=== PATIENT | male | born 1940 | race Caucasian/White ===

== ENCOUNTER 2016-10-03 11:43 | Observation (INO) | payer OTHER, BC ==
--- NOTE | 2016-10-03 12:02 | CPEKG ---
Heart Rate: 57 RR Interval: 1053 P-R Interval: 156 QRSD Interval: 110 QT Interval: 432 QTC Interval: 421 P [place]: -6 QRS [place]: -24 T Wave [place]: 38 EKG Severity - ABNORMAL ECG - EKG Impression: SINUS RHYTHM EKG Impression: NONSPECIFIC INTRAVENTRICULAR CONDUCTION DELAY Electronically Signed By: Beto Molina 03-Oct-2016 15:46:42
[2016-10-03 12:26] LABS: % IMMATURE GRANULYOCYTES 0.6 % (0.0-1.1); ABSOLUTE IMMATURE GRANULOCYTES 0.05 10^3/uL (0.00-0.10); ADD DIFF? NO; ADD MORPH? NO; ADD SCAN? NO; ATYPICAL LYMPHOCYTE FLAG 0 (0-99); FRAGMENT RBC FLAG 0 (0-99); HEMATOCRIT 52.1 % (40.0-51.0); HEMOGLOBIN 18.3 g/dL (13.7-17.5); LEFT SHIFT FLG 0 (0-99); LIPEMIA HEMOLYSIS FLAG 90 (0-99); MEAN CELL HEMOGLOBIN 32.6 pg (27.9-34.1); MEAN CELL HEMOGLOBIN CONCENTR. 35.1 g/dL (32.4-36.7); MEAN CELL VOLUME 92.7 fL (81.5-99.8); MEAN PLATELET VOLUME 10.2 fL (8.7-11.7); PLATELET CLUMPS FLAG 0 (0-99); PLATELET COUNT 151 10^3/uL (150-400); RED BLOOD CELL COUNT 5.62 10^6/uL (4.40-6.38); RED CELL DISTRIBUTION WIDTH 13.9 % (11.5-15.2)
[2016-10-03 12:33] LABS: ANION GAP 16 mEq/L (8-16); CALCIUM 9.4 mg/dL (8.5-10.4); CARBON DIOXIDE 20 mEq/l (22-31); CHLORIDE 104 mEq/L (97-110); CREATININE 1.7 mg/dL (0.7-1.3); GLOMERULAR FILTRATION RATE 40; GLUCOSE 176 mg/dL (70-100); POTASSIUM 4.5 mEq/L (3.5-5.2); SODIUM 140 mEq/L (134-144)
[2016-10-03 12:36] LABS: APTT 22.8 SEC (23.0-38.0); INR 0.98 (0.83-1.16); PROTIME(PATIENT) 12.9 SEC (12.0-15.0)
[2016-10-03 12:46] LABS: TROPONIN I < 0.012 ng/mL (0-0.034)
--- NOTE | 2016-10-03 13:07 | EDPHY ---
H & P Stated Complaint: SYNCOPE Source: Patient, Family, EMS Exam Limitations: No limitations - Personal History Current Tetanus/Diphtheria Vaccine: Yes Tetanus Vaccine Date: WITHIN 10 YRS - Medical/Surgical History Hx Asthma: No Hx Chronic Respiratory Disease: No Hx Diabetes: No Hx Cardiac Disease: Yes Hx Renal Disease: No Hx Cirrhosis: No Hx Alcoholism: No Hx HIV/AIDS: No Hx Splenectomy or Spleen Trauma: No Other PMH: hypertension, blind, bph, gerd, depression, back surg/neck surg, carpal tunnel bilat hands - Social History Smoking Status: Former smoker HPI/ROS: CHIEF COMPLAINT: Syncope, fall HISTORY OF PRESENT ILLNESS: Patient arrives by EMS status post fall. He was standing in his bathroom after being outside when he lost conscious. He does not know exactly what happened. His is in the other room and heard him fall. She found him lying with his head against the bathtub. He complains of mild headache but no neck pain. No chest pain. Some thoracic back pain. No pain in the arms, legs, abdomen or pelvis. The pain is minimal. He arrives by EMS and is seen at time of arrival. Spouse reports that this has happened once in the past. He has also had multiple near syncopal episodes that were resolved by laying flat. No other associated complaints or modifying factors. REVIEW OF SYSTEMS: Ten systems reviewed and are negative unless otherwise noted in the HPI PAST MEDICAL HISTORY: Reviewed SOCIAL HISTORY: Nonsmoker FAMILY HISTORY: Noncontributory EXAMINATION General Appearance: Alert, no distress Head: normocephalic, atraumatic Eyes: Acquired blindness. No obvious trauma to the eyes. ENT, Mouth: Mucous membranes moist Neck: C-collar in place. Trachea midline. Respiratory: Lungs are clear to auscultation Cardiovascular: Regular rate and rhythm. No murmur pulses intact distally. Gastrointestinal: Abdomen is soft and nontender. No distention. No tympany. No rigidity. Back: non-tender, no bony abnormalities Neurological: GCS 15. No pronator drift or dysmetria. A&O, nonfocal, normal gait Skin: Warm and dry, no rash. No lacerations abrasions or contusions Extremities: Nontender, no pedal edema. Range of motion is symmetric in all 4 limbs. Psychiatric: Mood and affect normal DIFFERENTIAL DIAGNOSES: Including but not limited to syncope, ACS, dehydration, dysrhythmia, intracranial hemorrhage, skull fracture, cervical fracture, thoracic fracture, sprain, strain, hematoma, dehydration, hypertension MDM: 11:53 a.m. Syncope with subsequent closed head injury and neck injury. He is neuro intact. No chest pain previous or at this time. He is not amnestic. There is no description or evidence of seizure-like activity. He is awake and alert no acute distress. Imaging or laboratory studies have been ordered. 12:30 p.m. Patient remains awake alert no acute distress. No syncope. No chest pain. Vital signs stable. Laboratory studies thus far are within normal limits. Creatinine is at baseline but minimally elevated. 1:20 p.m. Notified by radiologist Dr. Snow. CT scans of the head, cervical spine, thoracic spine are negative for any acute findings. There are chronic changes as noted 2:20 p.m. I have re-evaluated the patient. He is resting comfortably in no acute distress. I do recommend the patient be observed for his syncope. He is willing to comply. He feels that his blood pressure was low and that his medications the be reconciled. 2:25 p.m. I discussed the case with Dr. Crooks. He will admit the patient to a PCU bed, observation status. SUPERVISION: Patient was evaluated in conjunction with the supervising physician. Please see their note for details. (Lloyd Rodrigues) Constitutional: Initial Vital Signs Temperature (C) 36.6 C 10/03/16 11:51 Heart Rate 71 10/03/16 11:51 Respiratory Rate 16 10/03/16 11:51 Blood Pressure 111/65 10/03/16 11:51 O2 Sat (%) 93 10/03/16 11:51 O2 Delivery Mode Room Air Allergies/Adverse Reactions: No Allergies [NKA] Allergy (Verified 10/17/15 20:48) Home Medications: Medication Instructions Recorded Labetalol HCl 10/03/16 Losartan-Hctz 100-25 mg Tab 10/03/16 Medical Decision Making - Diagnostics Imaging Results: Imaging Impressions Chest X-Ray 10/03/16 11:53 Impression: Chest negative for acute posttraumatic sequela. Cervical Spine CT 10/03/16 11:54 Impression: 1. Elderly brain with atrophy and probable white matter small vessel disease. Negative for acute posttraumatic sequela. 2. See above report for additional findings. CT Cervical Spine Without Contrast History: Trauma. Technique: Multislice helical CT through the cervical spine without contrast from the skull base to T1. Soft tissue and bone evaluation is performed. Sagittal and coronal reconstructions are obtained and reviewed. Dose reduction techniques were utilized. Findings: A fracture or other acute osseous abnormality is not identified. The bone alignment is normal. There has been previous anterior cervical fusion with diskectomy extending from C3 to C5. There is solid interbody fusion at C5-C6 and there is prominent disk degenerative change noted at C6-C7. Multilevel facet and uncovertebral arthropathy is seen. There is probable multilevel neural foraminal impingement. The prevertebral soft tissues appear normal. Impression: 1. Negative for cervical spine fracture. 2. Postoperative and degenerative changes as detailed above. Results called and discussed with Lloyd Rodrigues on 10/03/2016 at 13:[address] 10/03/16 11:54 Impression: 1. Elderly brain with atrophy and probable white matter small vessel disease. Negative for acute posttraumatic sequela. 2. See above report for additional findings. CT Cervical Spine Without Contrast History: Trauma. Technique: Multislice helical CT through the cervical spine without contrast from the skull base to T1. Soft tissue and bone evaluation is performed. Sagittal and coronal reconstructions are obtained and reviewed. Dose reduction techniques were utilized. Findings: A fracture or other acute osseous abnormality is not identified. The bone alignment is normal. There has been previous anterior cervical fusion with diskectomy extending from C3 to C5. There is solid interbody fusion at C5-C6 and there is prominent disk degenerative change noted at C6-C7. Multilevel facet and uncovertebral arthropathy is seen. There is probable multilevel neural foraminal impingement. The prevertebral soft tissues appear normal. Impression: 1. Negative for cervical spine fracture. 2. Postoperative and degenerative changes as detailed above. Results called and discussed with Lloyd Rodrigues on 10/03/2016 at 13:[address] 10/03/16 11:55 Impression: Negative for fracture. Results called and discussed with Lloyd Rodrigues on 10/03/2016 13:16 ED Course/Re-evaluation: I did not see this patient while he was in the emergency department. However his care was discussed with the PA while the patient was in the department. I agree with treatment plan and management (Beto Molina) - Data Points Laboratory Results: Laboratory Results 10/03/16 11:40 10/03/16 11:40 10/03/16 10/03/16 10/03/16 11:50 11:40 11:40 WBC RBC Hgb Hct MCV MCH MCHC RDW Plt Count MPV Neut % (Auto) Lymph % (Auto) [place] % (Auto) Eos % (Auto) Baso % (Auto) Nucleat RBC Rel Count Absolute Neuts (auto) Absolute Lymphs (auto) Absolute Monos (auto) Absolute Eos (auto) Absolute Basos (auto) Absolute Nucleated RBC Immature Gran % Immature Gran # PT 12.9 SEC SEC (12.0-15.0) INR 0.98 (0.83-1.16) APTT 22.8 SEC L SEC (23.0-38.0) Sodium 140 mEq/L mEq/L (134-144) Potassium 4.5 mEq/L mEq/L (3.5-5.2) Chloride 104 mEq/L mEq/L (97-110) Carbon Dioxide 20 mEq/l L mEq/l (22-31) Anion Gap 16 mEq/L mEq/L (8-16) BUN 24 mg/dL H mg/dL (7-23) Creatinine 1.7 mg/dL H mg/dL (0.7-1.3) Estimated GFR 40 Glucose 176 mg/dL H mg/dL (70-100) Calcium 9.4 mg/dL mg/dL (8.5-10.4) Erythropoietin Cancelled Troponin I < 0.012 ng/mL ng/mL (0-0.034) NT-Pro-B Natriuret Pep 181 pg/mL H pg/mL (0-125) Lipase 173.0 IU/L IU/L (23-300) 10/03/16 11:40 WBC 8.84 10^3/uL 10^3/uL (3.80-9.50) RBC 5.62 10^6/uL 10^6/uL (4.40-6.38) Hgb 18.3 g/dL H g/dL (13.7-17.5) Hct 52.1 % H % (40.0-51.0) MCV 92.7 fL fL (81.5-99.8) MCH 32.6 pg pg (27.9-34.1) MCHC 35.1 g/dL g/dL (32.4-36.7) RDW 13.9 % % (11.5-15.2) Plt Count 151 10^3/uL 10^3/uL (150-400) MPV 10.2 fL fL (8.7-11.7) Neut % (Auto) 64.3 % % (39.3-74.2) Lymph % (Auto) 22.6 % % (15.0-45.0) [place] % (Auto) 8.8 % % (4.5-13.0) Eos % (Auto) 3.1 % % (0.6-7.6) Baso % (Auto) 0.6 % % (0.3-1.7) Nucleat RBC Rel Count 0.0 % % (0.0-0.2) Absolute Neuts (auto) 5.69 10^3/uL 10^3/uL (1.70-6.50) Absolute Lymphs (auto) 2.00 10^3/uL 10^3/uL (1.00-3.00) Absolute Monos (auto) 0.78 10^3/uL 10^3/uL (0.30-0.80) Absolute Eos (auto) 0.27 10^3/uL 10^3/uL (0.03-0.40) Absolute Basos (auto) 0.05 10^3/uL 10^3/uL (0.02-0.10) Absolute Nucleated RBC 0.00 10^3/uL 10^3/uL (0-0.01) Immature Gran % 0.6 % % (0.0-1.1) Immature Gran # 0.05 10^3/uL 10^3/uL (0.00-0.10) PT INR APTT Sodium Potassium Chloride Carbon Dioxide Anion Gap BUN Creatinine Estimated GFR Glucose Calcium Erythropoietin Troponin I NT-Pro-B Natriuret Pep Lipase Medications Given: Discontinued Medications Sodium Chloride (Ns) 500 mls @ 1,000 mls/hr IV EDNOW ONE PRN Reason: Protocol Stop: 10/03/16 13:44 Last Admin: 10/03/16 13:17 Dose: 500 mls Departure - Departure Disposition: [facility]
[2016-10-03] MEDS ORDERED: NS 500 ML IV ONE (13:15)
[2016-10-03] MEDS ORDERED: ONDANSETRON DISINTEGRATING 4 MG TAB PO PRN (19:17)
[2016-10-03] MEDS ORDERED: ONDANSETRON 4 MG/2 ML VIAL IVP PRN (19:17)
[2016-10-03] MEDS ORDERED: NON-FORMULARY NEW DRUG (Tadalafil [Cialis] 5 MG) PO PRN (19:18)
--- NOTE | 2016-10-03 19:52 | GHP ---
[f rep st] HISTORY AND PHYSICAL DATE OF ADMISSION: 10/03/2016 CHIEF COMPLAINT: Syncope. HISTORY OF PRESENT ILLNESS: This is a 75-year-old male, with a history of hypertension. This morni ng, he took his medications without eating, which he usually does not do, and then felt dizzy. Then , he had a syncopal episode. When EMS came, they found his blood pressure to be in the 70s systolic . He had noted no palpitations prior. He has had a previous syncopal episode several years ago. Carol hodge has been having trouble with somewhat labile blood pressures at times. He denies any chest pain o r shortness of breath. No fevers or chills. No abdominal pain or diarrhea. No nausea or vomiting. He feels normal now. REVIEW OF SYSTEMS: A 10-point review of systems was obtained and other than stated above was negati ve. PAST MEDICAL HISTORY: 1. Hypertension. 2. Chronic kidney disease, with baseline creatinine of about 1.4-1.7. He sees Dr. Rodriguez for [facility]. 3. Blindness since college. 4. BPH. MEDICATIONS: Reviewed and include labetalol and Cozaar. SOCIAL HISTORY: No smoking. Occasional alcohol. He is . FAMILY HISTORY: No history of coronary disease. PHYSICAL EXAMINATION: VITAL SIGNS: Afebrile. Blood pressure 145/94, heart rate 86, oxygen saturat ion 91% on room air. GENERAL: The patient is well developed and in no apparent distress. HEENT: Nonicteric sclerae. NECK: Supple. No thyromegaly. LUNGS: Good effort. Clear to auscultation bi laterally. CARDIOVASCULAR: Regular rate and rhythm. No murmurs or gallops. ABDOMEN: Positive tanja wel sounds. Soft, nontender, nondistended. No hepatosplenomegaly. EXTREMITIES: No clubbing, cyan osis, or edema. SKIN: Without rash. Warm, dry, and intact. NEUROLOGIC: Alert and oriented x3. M oving all 4 extremities equally. PSYCHIATRIC: Normal mood and affect. LABORATORY DATA: CBC is normal except for a little bit elevated hemoglobin. Chemistries show a cre atinine of 1.7. EKG personally reviewed and interpreted shows a normal sinus rhythm, with no ischem ic changes. CT scan of the head, cervical spine, and thoracic spine all are showing no acute abnorm alities. Chest x-ray is negative. ASSESSMENT: This is a 75-year-old male who presented with syncope. PLAN: 1. Syncope. The patient did have documented low blood pressures when EMS came. I suspect what hap pened is that when he took his medications on an empty stomach, he probably had a greater than he is accustomed to spike in antihypertensive medication concentration in his blood causing probably the low blood pressure. He is wondering if labetalol is the best medicine for him. At this point, I pr obably will keep him on these medications in the morning, especially if his blood pressure remains s table overnight. We will monitor him on telemetry. If everything looks normal, he can probably be discharged in the morning, and his primary care doctor or general office dispatcher can manage his blood pressure medicines. 2. Chronic kidney disease. The patient is close to baseline. 3. Mild polycythemia, perhaps due to dehydration. /[id number]/MODL
[2016-10-03] MEDS: ACETAMINOPHEN 325 MG TAB PO PRN (19:59)
[2016-10-03] MEDS: LOSARTAN POTASSIUM 50 MG TAB PO SCH (19:59)
[2016-10-03] MEDS: VENLAFAXINE XR 75 MG CAP PO SCH (20:00)
[2016-10-03] MEDS ORDERED: VENLAFAXINE HCL 75 MG PO SCH (21:00)
[2016-10-03] MEDS ORDERED: NON-FORMULARY NEW DRUG (Losartan Potassium [Cozaar] 100 MG) PO SCH (21:00)
[2016-10-04 04:07] LABS: % IMMATURE GRANULYOCYTES 0.4 % (0.0-1.1); ABSOLUTE IMMATURE GRANULOCYTES 0.04 10^3/uL (0.00-0.10); ADD DIFF? NO; ADD MORPH? NO; ADD SCAN? NO; ATYPICAL LYMPHOCYTE FLAG 0 (0-99); FRAGMENT RBC FLAG 0 (0-99); HEMATOCRIT 48.4 % (40.0-51.0); HEMOGLOBIN 16.7 g/dL (13.7-17.5); LEFT SHIFT FLG 0 (0-99); LIPEMIA HEMOLYSIS FLAG 90 (0-99); MEAN CELL HEMOGLOBIN 32.2 pg (27.9-34.1); MEAN CELL HEMOGLOBIN CONCENTR. 34.5 g/dL (32.4-36.7); MEAN CELL VOLUME 93.3 fL (81.5-99.8); MEAN PLATELET VOLUME 9.7 fL (8.7-11.7); PLATELET CLUMPS FLAG 0 (0-99); PLATELET COUNT 121 10^3/uL (150-400); RED BLOOD CELL COUNT 5.19 10^6/uL (4.40-6.38); RED CELL DISTRIBUTION WIDTH 13.8 % (11.5-15.2)
[2016-10-04] MEDS: ACETAMINOPHEN 325 MG TAB PO PRN ×2 (04:16→10:08)
[2016-10-04 04:20] LABS: ANION GAP 11 mEq/L (8-16); CALCIUM 8.6 mg/dL (8.5-10.4); CARBON DIOXIDE 23 mEq/l (22-31); CHLORIDE 108 mEq/L (97-110); CREATININE 1.4 mg/dL (0.7-1.3); GLOMERULAR FILTRATION RATE 50; GLUCOSE 105 mg/dL (70-100); SODIUM 142 mEq/L (134-144)
[2016-10-04 04:27] LABS: TROPONIN I < 0.012 ng/mL (0-0.034)
[2016-10-04] MEDS ORDERED: ALLOPURINOL 300 MG TAB PO SCH (09:00)
[2016-10-04] MEDS ORDERED: BUPROPION HCL 150 MG PO SCH (09:00)
[2016-10-04] MEDS ORDERED: LABETALOL HCL 100 MG TAB PO SCH (09:00)
[2016-10-04] MEDS ORDERED: NON-FORMULARY NEW DRUG (Silodosin [Rapaflo] 8 MG) PO SCH (09:00)
[2016-10-04] MEDS ORDERED: buPROPion SR 150 MG TAB PO SCH (09:00)
[2016-10-04] MEDS ORDERED: (Silodosin [Rapaflo] 8 MG) PO SCH (09:00)
[2016-10-04] MEDS ORDERED: PRAVASTATIN SODIUM 10 MG TAB PO SCH (09:00)
[2016-10-04] MEDS: VENLAFAXINE XR 75 MG CAP PO SCH (10:09)
[2016-10-04 11:05] VITALS: O2SAT 96
--- NOTE | 2016-10-04 12:08 | ECHO ---
[id number] + + [address] : : [place] [address] : : [phone] + Adult Echocardiographic Report + -----+ :Name: GINA BINGHAM NStudy Date: 10/04/2016 09:33 AM : : Hospital Admission Number: [id number] Location : 221: :: 1940 Gender: Male Height: 69 in : :Age: 75 yrs Race: WH Weight: 192 lb : :Reason For Study: Syncope : : BSA: 2.0 meters2 : + -----+ MMode/2D Measurements \T\ Calculations LVIDd: 4.9 cm EDV(Teich): Ao root diam: LVLd ap4: 8.7 cm 110.4 ml 4.1 cm EDV(MOD-sp4): LA dimension: 88.0 ml 3.9 cm LVLs ap4: 7.2 cm ESV(MOD-sp4): 30.0 ml EF(MOD-sp4): 65.9 % SV(MOD-sp4): 58.0 ml Normal Measurement Values: + + :LVIDd (3.5-5.7cm) IVSd (0.6-1.1cm) LVPWd (0.6-1.1cm) Aortic Root (2.0-3.7cm)Left Atrium (1.5-4.0cm): :LV Vol(d) (76-115ml) LV Vol(s) (29-48ml) Ejec Fraction (50-65%)PV Christiano (0.6- 1.2m/s) TV Christiano (0.4-1.0m/s) : :MV E Christiano (0.8-1.0m/s)MV A Christiano (0.3-1.0m/s)LVOT Christiano (0.7-1.2m/s) Asc Ao Christiano ( 0.9-1.8m/s) : + + Doppler Measurements \T\ Calculations MV E max christiano: 52.8 cm/sec Ao V2 max: 147.0 cm/sec MV A max christiano: 72.1 cm/sec Ao max P.6 mmHg MV E/A: 0.73 Ao mean P.5 mmHg Ao V2 mean: 86.8 cm/sec Ao V2 VTI: 26.9 cm Left Ventricle The left ventricle is normal in size. There is normal left ventricular wall thickness. Left ventricular systolic function is normal. Ejection Fraction = 60-65%. There is Doppler evidence for diastolic dysfunction. Right Ventricle The right ventricle is normal in size and function. Atria The left atrial size is normal. Right atrial size is normal. Mitral Valve The mitral valve is normal in structure and function. There is no evidence of mitral valve prolapse. There is no mitral valve stenosis. There is trace to mild mitral regurgitation. Tricuspid Valve Normal tricuspid valve. Aortic Valve The aortic valve is not well visualized. There is no aortic stenosis. Mild to moderate aortic regurgitation. Pulmonic Valve The pulmonic valve is normal in structure and function. There is no pulmonic valvular regurgitation. Great Vessels The aortic root is normal size. 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 Pericardium/Pleural There is no pericardial effusion. There is a fat pad seen. Conclusion A complete two-dimensional transthoracic echocardiogram was performed (2D, M-mode, Doppler and color flow Doppler). 1. The left ventricle is normal in size. The Ejection Fraction = 60-65%. There is Doppler evidence for diastolic dysfunction. 2. The mitral valve is normal in structure and function. There is trace to mild mitral regurgitation. 3. The aortic valve is not well visualized. There is no aortic stenosis. Mild to moderate aortic regurgitation. 4. 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 5. There is no pericardial effusion. 6. No old studies for comparison. Final Reading Physician: Jose Arguelles MD electronically signed on 10/04/2016 12:07 PM Ordering Physician: Jose Michel Performed By: Vivi Padgett, KIERSTEN
[2016-10-04] MEDS: LOSARTAN POTASSIUM 50 MG TAB PO SCH (12:42)
[2016-10-04 13:52] VITALS: BP 178/106; PULSE 68; RESP 19; TEMP 98
--- NOTE | 2016-10-04 16:10 | PDDCSUM ---
Discharge Summary Discharge Summary: DISCHARGE SUMMARY FOLLOW-UP ITEMS: Outpatient blood pressure management DATE OF ADMISSION: 10/03/2016 DATE OF DISCHARGE: 10/04/2016 DISCHARGE DIAGNOSES: 1. Acute syncope 2. Acute hypotension 3. Hypertension chronic 4. Aortic insufficiency 5. Chronic kidney disease stage 3 6. Suspected right suprascapular contusion CONSULTATIONS: None PROCEDURES / IMAGING: Echocardiogram demonstrating diastolic dysfunction, mild to moderate aortic insufficiency CHIEF COMPLAINT: Acute syncope SUBJECTIVE: Patient is feeling well at time of discharge, he has had no further episodes of lightheadedness PHYSICAL EXAM ON DISCHARGE: Systolic blood pressure 180, heart rate 70, afebrile, satting well on room air, lungs are clear to auscultation bilaterally, heart rhythm is regular, heart rate is regular, no overt lower extremity edema, he has full motor strength bilateral upper and lower extremities, sensation intact bilaterally, he has facial symmetry LABS ON DISCHARGE: Creatinine 1.4, troponin negative x2, BNP 180, potassium 4, white blood cell count 28018, hemoglobin 16.7 HOSPITAL COURSE BY PROBLEM: 1. Acute syncope. Patient presented with acute syncope most likely secondary to hypotension in the setting antihypertensive medications and poor oral intake on the morning of presentation. The offending agent was more likely his labetalol with it is rather rapid onset of action and patient not having anything to eat or drink on the morning of presentation. He also reports that he has been experiencing what sounds like intermittent orthostatic symptoms which may also be attributable to the beta-tommie. This in combination with his mild to moderate aortic insufficiency may have been enough to result in syncope. He did not have any evidence of tachy arrhythmias on telemetry overnight, he has no evidence of infection, at least at this juncture does not require urgent further obstructive coronary risk stratification. The patient's antihypertensive regimen is being modified which will be further discussed below. He may warrant an outpatient loop recorder for rhythm monitoring and this will be at the discretion of his primary care provider. 2. Acute hypotension. As described above, the patient's systolic blood pressure was in the 70s in the setting of taking his home antihypertensives not having anything to eat or drink on the morning of presentation as well as newly identified [id number] aortic insufficiency. The patient has not been hypotensive throughout his hospitalization and rather has been hypertensive with systolic blood pressures increasing as high as 190-200. The patient's neurologic exam is intact and CVA is not suspected at this time. 3. Chronic hypertension. The patient has previously been on labetalol and Cozaar for blood pressure management and given the above, would recommend adjusting from labetalol to amlodipine at this time. The patient has been given 5 mg today and he will be continued on 5 mg daily moving forward. He will also continue his Cozaar. Will follow up with his primary care provider for blood pressure reassessment. Given the wide fluctuations in blood pressure , he may be a candidate for ambulatory blood pressure monitoring to help titrate his medications more effectively, and this can be arranged as an outpatient. 4. Chronic kidney disease stage 3. Patient's baseline creatinine level ranges between 1.4-1.7, and he remained within this range during this hospitalization. 5. Suspected right suprascapular contusion. Secondary to mechanical fall, no evidence of physical dislocation or suspicion for fracture on physical exam or chest x-ray. Recommend ice, heat, Tylenol as needed for pain control. Patient should follow up with his primary care provider and if this continues to be an issue, would recommend more extensive focal imaging. 6. Aortic insufficiency. Mild to moderate on echocardiogram, does not warrant any immediate intervention or further workup, will require annual surveillance. The insufficiency should be taken in the context with his presentation of syncope, and would recommend avoiding over medication for hypertension. DISCHARGE MEDICATIONS: Please see official discharge medication reconciliation sheet in chart , discontinue labetalol, initiate amlodipine 5 mg daily. DISCHARGE INSTRUCTIONS: Patient should follow up with Dr. Haq within 1 week for repeat blood pressure monitoring, shoulder pain reassessment, potential referral to outpatient cardiology.
[2016-10-05] MEDS ORDERED: valACYclovir 500 MG TAB PO SCH (09:00)
== END 2016-10-04 15:16 | disposition home or self-care (01) ==
LOC: EDUNIT# → F2W 15:20
PROVIDERS: ADMIT Internal Medicine; ATTEND Internal Medicine
DX: R55 Syncope and collapse (principal); I95.9 Hypotension, unspecified; I10 Essential (primary) hypertension; I35.1 Nonrheumatic aortic (valve) insufficiency; N18.3 Chronic kidney disease, stage 3 (moderate); K21.9 Gastro-esophageal reflux disease without esophagitis; H54.0 Blindness, both eyes; N40.0 Benign prostatic hyperplasia without lower urinary tract symptoms; Z87.891 Personal history of nicotine dependence
CPT/HCPCS: 70450; 71010; 72125; 72128; 93005; 93306; G0378

== ENCOUNTER 2017-02-25 18:08 | Emergency (ER) | payer OTHER, BC ==
--- NOTE | 2017-02-25 18:47 | EDPHY ---
H & P Stated Complaint: Left knee redness Time Seen by Provider: 02/25/17 18:47 HPI/ROS: CHIEF COMPLAINT: Left knee redness HISTORY OF PRESENT ILLNESS: The patient presents the ED with complaints of left prepatellar erythema which has been present for the past week. The patient reportedly sustained minor trauma approximately week ago while hanging [employer] lights. The patient does have a history of gout initially felt that he may be experiencing an acute gout attack. The patient's herbicide service sales representative did prescribe some prednisone for the patient which improved his symptoms. Given the persistence of erythema in his prepatellar soft tissue he presents to the ED for evaluation. The patient does complain of some mild patella tenderness. He denies fever, shaking chills or additional acute complaints. REVIEW OF SYSTEMS: A comprehensive 10 point review of systems is otherwise negative aside from elements mentioned in the history of present illness. Source: Patient - Personal History Current Tetanus/Diphtheria Vaccine: Yes Current Tetanus Diphtheria and Acellular Pertussis (TDAP): Yes Tetanus Vaccine Date: WITHIN 10 YRS - Medical/Surgical History Hx Asthma: No Hx Chronic Respiratory Disease: No Hx Diabetes: No Hx Cardiac Disease: Yes Hx Renal Disease: No Hx Cirrhosis: No Hx Alcoholism: No Hx HIV/AIDS: No Hx Splenectomy or Spleen Trauma: No Other PMH: hypertension, blind, bph, gerd, depression, back surg/neck surg, carpal tunnel bilat hands - Social History Smoking Status: Former smoker - Physical Exam Exam: General Appearance: Alert, no distress Eyes: Pupils equal and round no pallor or injection ENT, Mouth: Mucous membranes moist Respiratory: There are no retractions, lungs are clear to auscultation Cardiovascular: Regular rate and rhythm Gastrointestinal: Abdomen is soft and nontender, no masses, bowel sounds normal Neurological: Grossly normal motor function Skin: Erythema as described below Musculoskeletal: Tenderness to palpation over the patella but no appreciable effusion Extremities: Pre patellar erythema, mild patellar tenderness Constitutional: Initial Vital Signs Temperature (C) 36.8 C 02/25/17 18:20 Heart Rate 92 02/25/17 18:20 Respiratory Rate 17 02/25/17 18:20 Blood Pressure 147/94 H 02/25/17 18:20 O2 Sat (%) 95 02/25/17 18:20 O2 Delivery Mode Room Air Allergies/Adverse Reactions: No Allergies [NKA] Allergy (Verified 02/25/17 18:19) Home Medications: Medication Instructions Recorded Allopurinol [Allopurinol 300 MG 300 mg PO DAILY 10/03/16 (RX)] Bupropion HCl [Bupropion HCl Sr] 150 mg PO DAILY 10/03/16 Cholecalciferol Vit D3 [Vitamin D3 2,000 units PO DAILY 10/03/16 (*)] Herbals/Supplements -Info Only 1 ea PO DAILY 10/03/16 Losartan Potassium [Cozaar] 100 mg PO HS 10/03/16 Pravastatin Sodium [Pravachol] 10 mg PO DAILY 10/03/16 Silodosin [RAPAFLO] 8 mg PO DAILY 10/03/16 Tadalafil [Cialis] 5 mg PO DAILY PRN 10/03/16 Valacyclovir HCl [Valacyclovir] 500 mg PO Q2D 10/03/16 Venlafaxine HCl [Venlafaxine HCl 75 mg PO BID 10/03/16 ER] amLODIPine BESYLATE [Amlodipine 5 mg PO DAILY #30 tablet 10/04/16 Besylate] Cephalexin [Keflex] 500 mg PO QID #40 cap 02/25/17 Medical Decision Making - Diagnostics Imaging Results: Left knee x-ray: Images reviewed by myself, negative for acute fracture. ED Course/Re-evaluation: The patient presents to the ED with a mild prepatellar bursitis. The patient did sustain trauma however his x-ray demonstrates no evidence of a patella fracture. He has no clinical evidence of a hemarthrosis or septic arthritis. The patient will be started on Keflex for the next 10 days. He is advised to return to the ED for increasing pain, redness, swelling or fever. The patient will follow up with his primary care provider as needed. Differential Diagnosis: Differential diagnosis considered includes patella fracture, bursitis, cellulitis, septic arthritis - Data Points Laboratory Results: Laboratory Results 02/25/17 19:10 02/25/17 19:10 02/25/17 02/25/17 19:10 19:10 WBC 13.96 10^3/uL H 10^3/uL (3.80-9.50) RBC 4.99 10^6/uL 10^6/uL (4.40-6.38) Hgb 16.3 g/dL g/dL (13.7-17.5) Hct 45.1 % % (40.0-51.0) MCV 90.4 fL fL (81.5-99.8) MCH 32.7 pg pg (27.9-34.1) MCHC 36.1 g/dL g/dL (32.4-36.7) RDW 13.0 % % (11.5-15.2) Plt Count 188 10^3/uL 10^3/uL (150-400) MPV 8.9 fL fL (8.7-11.7) Neut % (Auto) 85.8 % H % (39.3-74.2) Lymph % (Auto) 8.4 % L % (15.0-45.0) [place] % (Auto) 3.7 % L % (4.5-13.0) Eos % (Auto) 0.0 % L % (0.6-7.6) Baso % (Auto) 0.2 % L % (0.3-1.7) Nucleat RBC Rel Count 0.0 % % (0.0-0.2) Absolute Neuts (auto) 11.98 10^3/uL H 10^3/uL (1.70-6.50) Absolute Lymphs (auto) 1.17 10^3/uL 10^3/uL (1.00-3.00) Absolute Monos (auto) 0.51 10^3/uL 10^3/uL (0.30-0.80) Absolute Eos (auto) 0.00 10^3/uL L 10^3/uL (0.03-0.40) Absolute Basos (auto) 0.03 10^3/uL 10^3/uL (0.02-0.10) Absolute Nucleated RBC 0.00 10^3/uL 10^3/uL (0-0.01) Immature Gran % 1.9 % H % (0.0-1.1) Immature Gran # 0.27 10^3/uL H 10^3/uL (0.00-0.10) Sodium 138 mEq/L mEq/L (134-144) Potassium 4.1 mEq/L mEq/L (3.5-5.2) Chloride 101 mEq/L mEq/L (97-110) Carbon Dioxide 24 mEq/l mEq/l (22-31) Anion Gap 13 mEq/L mEq/L (8-16) BUN 23 mg/dL mg/dL (7-23) Creatinine 1.2 mg/dL mg/dL (0.7-1.3) Estimated GFR 59 Glucose 278 mg/dL H mg/dL (70-100) Calcium 9.2 mg/dL mg/dL (8.5-10.4) Departure - Departure Disposition: Home, Routine, Self-Care Clinical Impression: Prepatellar bursitis Condition: Good Instructions: Knee Bursitis (ED) Additional Instructions: 1. Take antibiotics as directed for next 10 days. 2. Return to the ED for increasing pain, redness, swelling or fever. 3. Follow up with your primary care provider as scheduled. Referrals: Angie Haq MD [Primary Care Provider] - As per Instructions Prescriptions: Cephalexin [Keflex] 500 mg PO QID #40 cap
[2017-02-25 19:29] LABS: PLATELET COUNT 188 10^3/uL (150-400)
[2017-02-25] MEDS ORDERED: CEPHALEXIN 500 MG CAP PO ONE (19:44)
[2017-02-25] MEDS ORDERED: CEPHALEXIN 500MG PREPACK#4 BTL TAKEHOME ONE (19:52)
[2017-02-25 20:02] VITALS: BP 135/75; PULSE 77; RESP 16; TEMP 98.1; O2SAT 96
== END 2017-02-25 20:00 | disposition home or self-care (01) ==
DX: M70.42 Prepatellar bursitis, left knee (principal); I10 Essential (primary) hypertension; Z87.891 Personal history of nicotine dependence; Y93.89 Activity, other specified

== ENCOUNTER → 2017-03-12 | Outpatient (CLI) | payer OTHER, BC | LOC: FIMAGING 12:29 | PROVIDERS: ATTEND Internal Medicine Rheumatology | DX: Z13.820 Encounter for screening for osteoporosis (principal); M85.80 Other specified disorders of bone density and structure, unspecified site ==

== ENCOUNTER → 2018-03-24 | Outpatient (CLI) | payer OTHER, BC | LOC: FIMAGING 12:51 → EDSTATUS 12:52 | PROVIDERS: ATTEND Family Medicine | DX: M25.511 Pain in right shoulder (principal); M50.322 Other cervical disc degeneration at C5-C6 level; Z98.1 Arthrodesis status ==